=== PATIENT | female | born 1955 | race African-American/Black ===

== ENCOUNTER 2020-02-16 01:16 | Emergency (ER) | payer MEDICAID ==
[~2020-02-16] VITALS: Ht 165.1 cm; Wt 123.0 kg
[2020-02-16 01:45] VITALS: BP 142/61
[2020-02-16] MEDS ORDERED: MORPHINE SULFATE 4 MG/ML CPJ (NOT FOR IM USE) IV ONE (01:45)
[2020-02-16] MEDS ORDERED: ONDANSETRON HCL 4MG/2ML INJ IV ONE ×2 (01:45→02:15)
[2020-02-16 02:20] LABS: BASOPHILS % 0.9 % (0.0-2.0); EOSINOPHILS % 1.9 % (0.0-5.0); HEMATOCRIT. 44.9 % (36.0-48.0); HEMOGLOBIN. 14.8 g/dL (12.0-16.0); LYMPHOCYTES % 28.5 % (20.0-50.0); MEAN CORPUSCULAR HEMOGLOBIN 30.1 pg (28.0-32.0); MEAN CORPUSCULAR VOLUME 91.1 fL (81.0-99.0); MEAN PLATELET VOLUME 10.4 fl (7.4-10.4); NEUTROPHILS % 58.7 % (40.0-76.0); PLATELET 183 x1000/uL (130-400); RED BLOOD CELL COUNT 4.93 mill/uL (4.2-5.4); RED CELL DISTRIBUTION WIDTH 14.6 % (11.6-14.6)
[2020-02-16 02:25] LABS: CHLORIDE 109 mEq/L (98-107)
[2020-02-16 02:29] LABS: ETHANOL BLOOD < 10 mg/dL
[2020-02-16] MEDS ORDERED: IOHEXOL-300 100 ML BOTTLE ONE (02:54)
[2020-02-16 02:59] LABS: CLARITY URINE CLEAR (CLEAR); COLOR URINE DARK YELLOW (YELLOW); KETONES URINE NEGATIVE (NEGATIVE); LEUKOCYTE ESTERASE URINE 1+ (NEGATIVE); NITRITE URINE POSITIVE (NEGATIVE); OCCULT BLOOD URINE TRACE (NEGATIVE); PH URINE 5.5 (4.5-8.0); PROTEIN URINE NEGATIVE (NEGATIVE); SPECIFIC GRAVITY URINE 1.031 (1.005-1.030)
[2020-02-16 03:09] LABS: *AMPHETAMINES SCREEN URINE PRESUMTIVE POSITIVE (NEGATIVE); *BARBITURATES SCREEN URINE NEGATIVE (NEGATIVE); *BENZODIAZEPINES SCREEN URINE NEGATIVE (NEGATIVE); *COCAINE SCREEN URINE NEGATIVE (NEGATIVE); METHADONE URINE SCREEN NEGATIVE (NEGATIVE)
[2020-02-16 03:10] LABS: CANNABINOID URINE SCREEN PRESUMTIVE POSITIVE (NEGATIVE); OPIATES URINE SCREEN NEGATIVE (NEGATIVE); PHENCYCLIDINE URINE SCREEN NEGATIVE (NEGATIVE)
[2020-02-16] MEDS ORDERED: ASPIRIN 81MG TABLET PO ONE (04:15)
[2020-02-16] MEDS ORDERED: SODIUM CHLORIDE 0.9% 1,000 ML IV ONE (04:45)
== END 2020-02-16 10:03 | disposition short-term general hospital (02) ==
LOC: ER 01:16
DX: I21.A1 Myocardial infarction type 2 (principal); F15.10 Other stimulant abuse, uncomplicated; R10.84 Generalized abdominal pain; R19.7 Diarrhea, unspecified; Z20.828 Contact with and (suspected) exposure to other viral communicable diseases; I10 Essential (primary) hypertension; E11.9 Type 2 diabetes mellitus without complications; F12.10 Cannabis abuse, uncomplicated; Z86.73 Personal history of transient ischemic attack (TIA), and cerebral infarction without residual deficits; Z95.0 Presence of cardiac pacemaker
CPT/HCPCS: 36415; 71045; 74177; 80053; 80305; 80320; 81003; 83605; 83690; 83880; 84484; 85025; 85610; 87635; 93005; 96361; 96374; 96375; 99285; C9803; J2270; J2405; J7030; Q9967; Z7610; G0480

== ENCOUNTER 2020-09-11 23:51 | Inpatient (IN) | payer MEDICAID ==
[~2020-09-11] VITALS: Ht 170.2 cm; Wt 113.9 kg
[2020-09-12] MEDS ORDERED: MORPHINE SULFATE 4 MG/ML CPJ (NOT FOR IM USE) IV STA (00:08)
[2020-09-12] MEDS ORDERED: NITROGLYCERIN 0.4MG TABLET SL SL PRN (00:15)
[2020-09-12] MEDS ORDERED: FUROSEMIDE 40MG/4ML VIAL IV ONE (00:15)
[2020-09-12] MEDS ORDERED: ASPIRIN 81MG TABLET PO ONE (00:15)
[2020-09-12 00:32] LABS: BASOPHILS % 0.8 % (0.0-2.0); EOSINOPHILS % 2.1 % (0.0-5.0); HEMATOCRIT. 42.3 % (36.0-48.0); HEMOGLOBIN. 14.3 g/dL (12.0-16.0); LYMPHOCYTES % 30.2 % (20.0-50.0); MEAN CORPUSCULAR HEMOGLOBIN 30.6 pg (28.0-32.0); MEAN CORPUSCULAR VOLUME 90.6 fL (81.0-99.0); MEAN PLATELET VOLUME 9.3 fl (7.4-10.4); MONOCYTES % 8.8 % (2.0-8.0); NEUTROPHILS % 58.1 % (40.0-76.0); PLATELET 183 x1000/uL (130-400); RED BLOOD CELL COUNT 4.67 mill/uL (4.2-5.4); RED CELL DISTRIBUTION WIDTH 15.3 % (11.6-14.6)
[2020-09-12 00:39] LABS: CHLORIDE 108 mEq/L (98-107)
[2020-09-12 00:41] LABS: INR 1.1; PARTIAL THROMBOPLASTIN TIME 51.7 sec (23.4-31.0); PROTHROMBIN TIME 11.4 sec (9.6-11.0)
[2020-09-12 02:29] LABS: *BENZODIAZEPINES SCREEN URINE NEGATIVE (NEGATIVE); *COCAINE SCREEN URINE NEGATIVE (NEGATIVE); CANNABINOID URINE SCREEN PRESUMTIVE POSITIVE (NEGATIVE); METHADONE URINE SCREEN NEGATIVE (NEGATIVE); OPIATES URINE SCREEN PRESUMTIVE POSITIVE (NEGATIVE); PHENCYCLIDINE URINE SCREEN NEGATIVE (NEGATIVE)
[2020-09-12 02:30] LABS: *AMPHETAMINES SCREEN URINE NEGATIVE (NEGATIVE); *BARBITURATES SCREEN URINE NEGATIVE (NEGATIVE)
[2020-09-12] MEDS ORDERED: MORPHINE SULFATE 4 MG/ML CPJ (NOT FOR IM USE) IV ONE (03:30)
[2020-09-12] MEDS ORDERED: ONDANSETRON HCL 4MG/2ML INJ IV PRN (09:00)
[2020-09-12] MEDS: FUROSEMIDE 40MG/4ML VIAL IVP SCH ×2 (09:32→18:00)
[2020-09-12 10:51] VITALS: BP 135/90
[2020-09-12 11:33] VITALS: BP 142/97
[2020-09-12 16:00] VITALS: BP 162/70
[2020-09-12 18:00] VITALS: BP 151/85
[2020-09-12] MEDS: LISINOPRIL 20MG TABLET PO SCH (18:48)
[2020-09-12] MEDS ORDERED: REGADENOSON 0.4 MG/5 ML IV NR (19:30)
[2020-09-12 20:00] VITALS: BP 120/73
[2020-09-13] VITALS: BP 176/78
[2020-09-13] MEDS: ACETAMINOPHEN 325MG TABLET PO PRN ×2 (00:35→13:55)
[2020-09-13 04:00] VITALS: BP 151/82
[2020-09-13 08:00] VITALS: BP 143/76
[2020-09-13] MEDS: LISINOPRIL 20MG TABLET PO SCH (08:38)
[2020-09-13] MEDS: FUROSEMIDE 40MG/4ML VIAL IVP SCH (08:43)
[2020-09-13] MEDS ORDERED: ASPIRIN 81MG TABLET PO SCH (09:00)
[2020-09-13] MEDS ORDERED: REGADENOSON 0.4 MG/5 ML IV ONE (09:21)
[2020-09-13 12:00] VITALS: BP 159/86
[2020-09-13 15:48] VITALS: BP 145/82
[2020-09-13 16:00] VITALS: BP 149/77
[2020-09-13] MEDS ORDERED: CARVEDILOL 3.125 MG TABLET PO SCH (21:00)
== END 2020-09-13 17:15 | disposition home or self-care (01) | DRG 198 ==
LOC: ER 23:51 → 5WST 09-12 03:14 → ENRESERV 09-12 09:10
PROVIDERS: ADMIT Internal Medicine; ATTEND Internal Medicine
DX: I24.9 Acute ischemic heart disease, unspecified (principal); I50.43 Acute on chronic combined systolic (congestive) and diastolic (congestive) heart failure; I48.92 Unspecified atrial flutter; I69.354 Hemiplegia and hemiparesis following cerebral infarction affecting left non-dominant side; I48.91 Unspecified atrial fibrillation; I11.0 Hypertensive heart disease with heart failure; E66.9 Obesity, unspecified; E11.9 Type 2 diabetes mellitus without complications; F12.90 Cannabis use, unspecified, uncomplicated; Z87.891 Personal history of nicotine dependence; Z95.0 Presence of cardiac pacemaker; Z68.39 Body mass index [BMI] 39.0-39.9, adult; I25.2 Old myocardial infarction; Z71.3 Dietary counseling and surveillance; I25.10 Atherosclerotic heart disease of native coronary artery without angina pectoris
CPT/HCPCS: 36415; 71045; 78452; 80053; 80061; 80305; 83036; 83880; 84443; 84484; 85025; 93005; 93017; 93306; 97162; 99285; A9500; J1940; J2270; J2785

== ENCOUNTER 2022-07-11 17:10 | Emergency (ER) | payer MEDICAID ==
[~2022-07-11] VITALS: Ht 170.2 cm; Wt 181.0 kg
[2022-07-11] MEDS ORDERED: MORPHINE SULFATE 4 MG/ML CPJ (NOT FOR IM USE) IV ONE (18:00)
[2022-07-11] MEDS ORDERED: FUROSEMIDE 40MG/4ML VIAL IVP ONE (18:15)
[2022-07-11 18:33] LABS: HEMATOCRIT. 26.6 % (36.0-48.0); HEMOGLOBIN. 8.3 g/dL (12.0-16.0); MEAN CORPUSCULAR HEMOGLOBIN 26.9 pg (28.0-32.0); MEAN CORPUSCULAR VOLUME 85.5 fL (81.0-99.0); MEAN PLATELET VOLUME 8.1 fl (7.4-10.4); PLATELET 602 x1000/uL (130-400); RED BLOOD CELL COUNT 3.11 mill/uL (4.2-5.4); RED CELL DISTRIBUTION WIDTH 18.1 % (11.6-14.6)
[2022-07-11 18:36] LABS: CHLORIDE 106 mEq/L (98-107)
[2022-07-11 18:44] LABS: INR 1.3; PROTHROMBIN TIME 13.4 sec (9.6-11.0)
[2022-07-11 18:58] LABS: PLATELET ESTIMATE MARKEDLY INCREASED
[2022-07-12 01:09] VITALS: BP 161/79
== END 2022-07-12 02:22 | disposition short-term general hospital (02) ==
LOC: ER 17:10
DX: I48.91 Unspecified atrial fibrillation (principal); R77.8 Other specified abnormalities of plasma proteins; Z20.822 Contact with and (suspected) exposure to COVID-19
CPT/HCPCS: 36415; 71045; 80053; 84484; 85025; 85610; 87426; 96374; 96375; 99285; C1893; C9803; J1940; J2270; Z7610; 94002